=== PATIENT | male | born 1970 | race African-American/Black ===

== ENCOUNTER 2016-08-09 04:05 | Emergency (ER) | payer OTHER ==
[~2016-08-09] VITALS: Ht 182.9 cm; Wt 108.6 kg
[~2016-08-09 04:05] MED LIST: AMOXICILLIN500 M1 PO; Advair 100/50 Diskus IH; CLEOCIN300 MG PO; FLEXERIL10 MG PO; IBUPROFEN800 MG PO; KEPPRA250 MG PO; KEPPRA500 MG PO; LEVAQUIN750 MG PO; Levaquin PO; MEN'S MULTI-VI1 EACH PO; NAPROSYN500 MG PO; PERCOCET 10/1 TABLET PO; PERCOCET 5/31 TABLET PO; PHENERGAN-CODE120 ML PO; PHOSPHA250 MG PO; PREDNISONE20 MG PO; PROVENTIL HFA6.7 GM IH; TRILEPTAL600 MG PO; ULTRAM50 MG PO; VICODIN 5-3001 EACH PO; ZOFRAN4 MG PO; predniSONE PO
[2016-08-09 05:19] LABS: HEMATOCRIT 37.2 % (38.0-50.0); MCH 27.9 PG (29.0-34.0); MCHC 32.8 G/DL (30.0-36.0); MCV 84.9 FL (86-99); MEAN PLAT.VOLUME 9.7 uM^3 (9.0-12.4); PLATELET COUNT 338 K/uL (156-360); RBC DIS.WIDTH-CV 13.7 % (11.8-14.6); RBC DIS.WIDTH-SD 42.8 % (39-53); RED BLOOD COUNT 4.38 M/uL (4.00-5.50); WHITE BLOOD COUNT 5.5 K/uL (4.1-10.2)
[2016-08-09 05:21] LABS: COLOR RED ((YELLOW)); LEUKOCYTES NEGATIVE; NITRITE NEGATIVE
[2016-08-09 05:22] LABS: ADD MIUA? YES; BILIRUBIN NEGATIVE; BLOOD LARGE; GLUCOSE (STRIP) NEGATIVE; KETONES NEGATIVE; PH, URINE 6.5 (5-8); PROTEIN (STRIP) 100; UROBILINOGEN 0.2 MG/DL (0.2-1.0)
[2016-08-09 05:27] LABS: CHLORIDE 105 mEq/L (99-109); SODIUM 139 mEq/L (136-147)
[2016-08-09 05:29] LABS: GLUCOSE 119 mg/dL (70-99)
[2016-08-09 05:30] LABS: ANION GAP 11 MEQ/L (2-14)
[2016-08-09 05:32] LABS: GFR ESTIMATE (CALCULATED) > 59 mL/min/
[2016-08-09 05:33] LABS: UREA NITROGEN (BUN) 20 mg/dL (9-23)
[2016-08-09 06:16] LABS: RED BLOOD CELLS TNTC /HPF (0-5); UCUL ADDED? YES
[2016-08-09 08:55] VITALS: BP 149/100
== END 2016-08-09 08:59 | disposition home or self-care (01) ==
LOC: EME 04:05
PROVIDERS: Emergency Medicine
DX: R31.0 Gross hematuria (principal); I10 Essential (primary) hypertension; Z88.5 Allergy status to narcotic agent; Z88.6 Allergy status to analgesic agent
CPT/HCPCS: 74176; 80048; 81003; 85027; 87086; 99281; 99285; J0696; J1885; J2405; J7030; J7050

== ENCOUNTER 2016-08-27 08:38 | Emergency (ER) | payer OTHER ==
[~2016-08-27] VITALS: Ht 182.9 cm; Wt 110.3 kg
[2016-08-27 10:16] LABS: BASOPHIL COUNT 0.1 K/uL (0-0.1); EOSINOPHIL (%) 1.1 % (0-5); EOSINOPHIL COUNT 0.1 K/uL (0-0.3); HEMATOCRIT 40.2 % (38.0-50.0); IMMATURE GRANULOCYTE (%) 0.2 % (0.0-0.7); INSTRUMENT ABS NEUTROPHIL CT 3.7 K/uL; MCH 27.4 PG (29.0-34.0); MCHC 32.3 G/DL (30.0-36.0); MCV 84.6 FL (86-99); MEAN PLAT.VOLUME 9.4 uM^3 (9.0-12.4); MONOCYTE COUNT 0.7 K/uL (0-0.8); NEUTROPHIL (%) 56.6 % (45-76); NEUTROPHIL COUNT 3.7 K/uL (1.8-6.4); PLATELET COUNT 421 K/uL (156-360); RBC DIS.WIDTH-CV 13.8 % (11.8-14.6); RBC DIS.WIDTH-SD 42.7 % (39-53); RED BLOOD COUNT 4.75 M/uL (4.00-5.50); WHITE BLOOD COUNT 6.5 K/uL (4.1-10.2)
[2016-08-27 10:18] LABS: COLOR RED ((YELLOW)); LEUKOCYTES NEGATIVE; NITRITE NEGATIVE
[2016-08-27 10:19] LABS: ADD MIUA? YES; BILIRUBIN NEGATIVE; BLOOD LARGE; GLUCOSE (STRIP) NEGATIVE; KETONES NEGATIVE; PH, URINE 6.5 (5-8); PROTEIN (STRIP) 100; UROBILINOGEN 0.2 MG/DL (0.2-1.0)
[2016-08-27 10:20] LABS: RED BLOOD CELLS TNTC /HPF (0-5); UCUL ADDED? YES
[2016-08-27 10:24] LABS: CHLORIDE 106 mEq/L (99-109); SODIUM 140 mEq/L (136-147)
[2016-08-27 10:25] LABS: GLUCOSE 87 mg/dL (70-99); INTER. NORMALIZED RATIO 1.1; PROTHROMBIN TIME 10.7 (9.2-11.2)
[2016-08-27 10:27] LABS: ANION GAP 9 MEQ/L (2-14)
[2016-08-27 10:29] LABS: GFR ESTIMATE (CALCULATED) > 59 mL/min/
[2016-08-27 10:30] LABS: UREA NITROGEN (BUN) 16 mg/dL (9-23)
[2016-08-27 14:29] VITALS: BP 147/107
== END 2016-08-27 14:30 | disposition home or self-care (01) ==
LOC: EME 08:38
PROVIDERS: Emergency Medicine
DX: R31.9 Hematuria, unspecified (principal); R10.30 Lower abdominal pain, unspecified; I10 Essential (primary) hypertension
CPT/HCPCS: 74176; 80048; 81003; 85025; 85610; 87086; 99281; 99284

== ENCOUNTER 2016-09-19 14:33 | Inpatient (IN) | payer OTHER ==
[~2016-09-19] VITALS: Ht 182.9 cm; Wt 98.9 kg
[2016-09-19 15:50] LABS: HEMATOCRIT 38.6 % (38.0-50.0); MCH 27.7 PG (29.0-34.0); MCHC 32.9 G/DL (30.0-36.0); MCV 84.3 FL (86-99); MEAN PLAT.VOLUME 9.3 uM^3 (9.0-12.4); PLATELET COUNT 317 K/uL (156-360); RBC DIS.WIDTH-CV 13.8 % (11.8-14.6); RBC DIS.WIDTH-SD 42.5 % (39-53); RED BLOOD COUNT 4.58 M/uL (4.00-5.50); WHITE BLOOD COUNT 17.8 K/uL (4.1-10.2)
[2016-09-19 15:57] LABS: CHLORIDE 105 mEq/L (99-109); SODIUM 137 mEq/L (136-147)
[2016-09-19 15:59] LABS: GLUCOSE 104 mg/dL (70-99)
[2016-09-19 16:00] LABS: ANION GAP 7 MEQ/L (2-14)
[2016-09-19 16:03] LABS: GFR ESTIMATE (CALCULATED) > 59 mL/min/
[2016-09-19 16:04] LABS: UREA NITROGEN (BUN) 19 mg/dL (9-23)
[2016-09-20 00:36] LABS: ADD MIUA? NO; BILIRUBIN NEGATIVE; BLOOD NEGATIVE; COLOR YELLOW ((YELLOW)); GLUCOSE (STRIP) NEGATIVE; KETONES NEGATIVE; LEUKOCYTES NEGATIVE; NITRITE NEGATIVE; PROTEIN (STRIP) NEGATIVE; SPECIFIC GRAVITY 1.015 (1.000-1.030); UCUL ADDED? NO; UROBILINOGEN 0.2 MG/DL (0.2-1.0)
[2016-09-20 05:50] LABS: BASOPHIL COUNT 0.1 K/uL (0-0.1); EOSINOPHIL (%) 0 % (0-5); HEMATOCRIT 33.6 % (38.0-50.0); IMMATURE GRANULOCYTE (%) 0.7 % (0.0-0.7); IMMATURE GRANULOCYTE COUNT 0.1 K/uL; INSTRUMENT ABS NEUTROPHIL CT 17.5 K/uL; LYMPHOCYTE COUNT 0.8 K/uL (1.0-2.8); MCH 27.8 PG (29.0-34.0); MEAN PLAT.VOLUME 8.9 uM^3 (9.0-12.4); MONOCYTE (%) 4.7 % (3-12); MONOCYTE COUNT 0.9 K/uL (0-0.8); NEUTROPHIL (%) 90.4 % (45-76); NEUTROPHIL COUNT 17.5 K/uL (1.8-6.4); PLATELET COUNT 274 K/uL (156-360); RBC DIS.WIDTH-CV 13.7 % (11.8-14.6); RBC DIS.WIDTH-SD 42.1 % (39-53); WHITE BLOOD COUNT 19.3 K/uL (4.1-10.2)
[2016-09-20 06:01] LABS: CHLORIDE 110 mEq/L (99-109); POTASSIUM 3.8 mEq/L (3.7-5.4); SODIUM 138 mEq/L (136-147)
[2016-09-20 06:03] LABS: GLUCOSE 93 mg/dL (70-99)
[2016-09-20 06:04] LABS: ANION GAP 7 MEQ/L (2-14)
[2016-09-20 06:06] LABS: GFR ESTIMATE (CALCULATED) > 59 mL/min/
[2016-09-20 06:07] LABS: UREA NITROGEN (BUN) 15 mg/dL (9-23)
[2016-09-20 15:38] VITALS: BP 133/79
[2016-09-21 06:50] LABS: EOSINOPHIL (%) 1.9 % (0-5); EOSINOPHIL COUNT 0.2 K/uL (0-0.3); HEMATOCRIT 31.9 % (38.0-50.0); IMMATURE GRANULOCYTE (%) 0.3 % (0.0-0.7); INSTRUMENT ABS NEUTROPHIL CT 6.4 K/uL; LYMPHOCYTE COUNT 1.9 K/uL (1.0-2.8); MCH 28.7 PG (29.0-34.0); MCHC 33.5 G/DL (30.0-36.0); MCV 85.5 FL (86-99); MEAN PLAT.VOLUME 9.7 uM^3 (9.0-12.4); MONOCYTE (%) 8.7 % (3-12); MONOCYTE COUNT 0.8 K/uL (0-0.8); NEUTROPHIL (%) 68.7 % (45-76); NEUTROPHIL COUNT 6.4 K/uL (1.8-6.4); PLATELET COUNT 281 K/uL (156-360); RBC DIS.WIDTH-CV 14.4 % (11.8-14.6); RBC DIS.WIDTH-SD 45.1 % (39-53); RED BLOOD COUNT 3.73 M/uL (4.00-5.50); WHITE BLOOD COUNT 9.3 K/uL (4.1-10.2)
[2016-09-21 07:14] LABS: ANION GAP 8 MEQ/L (2-14); CHLORIDE 110 MEQ/L (99-109); GFR ESTIMATE (CALCULATED) > 59 mL/min/; GLUCOSE 82 mg/dL (70-99); SAMPLE HEMOLYSIS CHECK 0; SAMPLE ICTERIC CHECK 0; SAMPLE LIPEMIA CHECK 0; SODIUM 140 MEQ/L (136-147); UREA NITROGEN (BUN) 13 mg/dL (9-23)
[2016-09-21 07:17] LABS: Estimated Average Glucose 128 mg/dL (70-123); HEMOGLOBIN A1c (GLYCOHEMOGLOB) 6.1 % HGB (Below 5.7)
[2016-09-21 07:28] LABS: VANCOMYCIN, TROUGH 4.3 MCG/ML (10-20)
[2016-09-21 08:03] VITALS: BP 134/66
[2016-09-21] MEDS ORDERED: AUGMENTIN875 MG PO (10:12)
== END 2016-09-21 14:00 | disposition home or self-care (01) | DRG 872 ==
LOC: EME 14:33 → EDOF 22:35 → 5EAST 22:35 → EDOF 09-20 11:02 → 5EAST 09-20 15:21
PROVIDERS: Hospitalist; Internal Medicine
DX: A40.1 Sepsis due to streptococcus, group B (principal); E78.00 Pure hypercholesterolemia, unspecified; I10 Essential (primary) hypertension; L03.115 Cellulitis of right lower limb; M86.651 Other chronic osteomyelitis, right thigh; R73.03 Prediabetes; E66.9 Obesity, unspecified; Z68.29 Body mass index [BMI] 29.0-29.9, adult; I95.9 Hypotension, unspecified; E78.5 Hyperlipidemia, unspecified; M61.9 Calcification and ossification of muscle, unspecified
CPT/HCPCS: 71020; 73552; 73701; 80048; 80202; 81003; 83036; 83605; 85025; 85027; 87040; 87077; 87186; 87801; 99281; 99285; J0295; J1650; J1885; J2405; J3370; J7030; J7050

== ENCOUNTER 2017-05-18 11:23 | Emergency (ER) | payer OTHER ==
[~2017-05-18] VITALS: Ht 182.9 cm; Wt 126.2 kg
[~2017-05-18 11:23] MED LIST changes: +AUGMENTIN875 MG PO
[2017-05-18 12:19] LABS: HEMATOCRIT 38.9 % (38.0-50.0); MCH 28.5 PG (29.0-34.0); MCHC 33.4 G/DL (30.0-36.0); MCV 85.3 FL (86-99); PLATELET COUNT 316 K/uL (156-360); RBC DIS.WIDTH-CV 13.3 % (11.8-14.6); RBC DIS.WIDTH-SD 41.7 % (39-53); RED BLOOD COUNT 4.56 M/uL (4.00-5.50)
[2017-05-18 12:29] LABS: ALBUMIN 3.9 g/dL (3.2-4.8)
[2017-05-18 12:30] LABS: CHLORIDE 107 mEq/L (99-109); SODIUM 139 mEq/L (136-147)
[2017-05-18 12:32] LABS: GLUCOSE 87 mg/dL (70-99); TOTAL PROTEIN 7.4 g/dL (6.4-8.3)
[2017-05-18 12:34] LABS: TOTAL BILIRUBIN 0.5 mg/dL (0.0-1.0)
[2017-05-18 12:35] LABS: ALKALINE PHOSPHATASE 87 IU/L (3-129)
[2017-05-18 12:36] LABS: CREATININE 0.9 mg/dL (0.6-1.3); GFR ESTIMATE (CALCULATED) > 59 mL/min/ (58.99-99999)
[2017-05-18 12:37] LABS: AST (GOT) 44 IU/L (2-34); UREA NITROGEN (BUN) 16 mg/dL (9-23)
[2017-05-18 12:38] LABS: ALT (GPT) 46 IU/L (3-49)
[2017-05-18 12:39] LABS: LIPASE 17 U/L (1.0-51.0)
[2017-05-18] MEDS ORDERED: MOTRIN600 MG PO (13:07)
[2017-05-18] MEDS ORDERED: PROMETHAZINE HC25 M1 PO (13:07)
[2017-05-18 13:26] VITALS: BP 172/105
== END 2017-05-18 13:27 | disposition home or self-care (01) ==
LOC: EME 11:23
PROVIDERS: Physician Assistant
DX: J11.1 Influenza due to unidentified influenza virus with other respiratory manifestations (principal); J11.2 Influenza due to unidentified influenza virus with gastrointestinal manifestations; I10 Essential (primary) hypertension; Z88.5 Allergy status to narcotic agent; Z88.6 Allergy status to analgesic agent
CPT/HCPCS: 80053; 83690; 84484; 85027; 99281; 99284